=== PATIENT | male | born 1955 | race African-American/Black ===

== ENCOUNTER → 2018-10-02 | Day surgery (SDC) | payer BC ==
[2018-09-29 12:28] VITALS: BMI 33.9
[~2018-10-02] MED LIST: Ketamine 50 MG/ML (10ML VIAL) ONE
== END ==
LOC: SDC/OP 10:36
PROVIDERS: ATTEND Nurse Practitioner Family
DX: M21.372 Foot drop, left foot (principal); M54.9 Dorsalgia, unspecified; G89.29 Other chronic pain; F32.9 Major depressive disorder, single episode, unspecified; E78.5 Hyperlipidemia, unspecified; I10 Essential (primary) hypertension; G47.30 Sleep apnea, unspecified; Z98.890 Other specified postprocedural states; Z79.899 Other long term (current) drug therapy

== ENCOUNTER 2019-01-25 13:56 | Outpatient (CLI) | payer BC ==
--- NOTE | 2019-01-25 16:42 | CT ---
LUMBAR SPINE CT WITHOUT CONTRAST: 01/25/19 COMPARISON: None. HISTORY: Left foot numbness, spinal stenosis with neurogenic claudication. TECHNIQUE: Axial CT imaging at 3 mm intervals through the lumbar spine without contrast. Coronal and sagittal re formatted imaging obtained. FINDINGS: Evaluation for central canal and/or neural foraminal stenosis is limited on CT. There is an incompletely imaged low density lesion within the central aspect of the right kidney kris suring 2.1 cm with Hounsfield units in the 35-40 range, not consistent with a simple cyst. Thus, lou l ultrasound is advised for further assessment. There is no anterolisthesis of retrolisthesis noted within the lumbar spine. T12-L1: Mild bilateral facet hypertrophy. No significant central canal or neural foraminal stenosis o n the basis of osteophyte encroachment. L1-2: No osseous cause of significant central canal or neural foraminal stenosis. Mild bilateral face t hypertrophy with hypertrophy of the ligamentum flavum. L2-3: Mild bilateral facet hypertrophy. No osseous cause of significant central canal or neural fora miguel stenosis. Mild bilateral facet hypertrophy. L3-4: There is a small post foraminal disc protrusion on the left. There is mild left neural foramina l stenosis. No osseous cause of significant central canal stenosis. L4-5: There is bilateral facet hypertrophy with probable mild bilateral neural foraminal stenosis. No osseous cause of significant central canal stenosis. L5-S1: There is disc space narrowing and disc calcification as well as vacuum disc formation and bila teral facet hypertrophy. There is probable mild central canal stenosis and mild/moderate bilateral ne ural foraminal stenosis, left greater than right. No acute fracture or dislocation. No worrisome lyti c or blastic bone lesion. IMPRESSION: 1. Lumbar spine degenerative change, most prominent at the L5-S1 level. 2. Nonspecific hypodense lesion within the right kidney for which renal ultrasound is advised. Code T POS: TPC
== END 2019-01-25 13:57 | disposition home or self-care (01) ==
LOC: BICCT 13:56
PROVIDERS: ATTEND Nurse Practitioner Family
DX: M48.062 Spinal stenosis, lumbar region with neurogenic claudication (principal); M47.817 Spondylosis without myelopathy or radiculopathy, lumbosacral region; N28.9 Disorder of kidney and ureter, unspecified
CPT/HCPCS: 72131

== ENCOUNTER 2019-02-06 14:27 | Outpatient (CLI) | payer BC ==
--- NOTE | 2019-02-06 15:12 | ULT ---
Renal sonogram HISTORY: Renal cysts. COMPARISON: CT lumbar spine 01/25/2019. Sonogram kidneys 09/30/2014. FINDINGS: Right kidney measures up to 10.0 cm. Parapelvic cyst at the inferior pole is 2.4 cm greates t diameter, larger than on the prior study. No hydronephrosis or solid mass. Left kidney measures up to 11.2 cm. Small cortical cysts scattered throughout the cortex. Largest is at superior pole measuring up to 1.7 cm. Echogenicity involving the cortex at the medial aspect of the SONOGRAM IS OF UNCERTAIN ETIOLOGY GIVEN THE ABSENCE OF CALCIFICATION OR GAS ON RECENT CT. IMPRESSION: BILATERAL RENAL CYSTS, INCLUDING THE ABNORMALITY SEEN ON RECENT CT LUMBAR SPINE. NO AGGRE SSIVE ABNORMALITIES ARE DEMONSTRATED. NO EVIDENCE OF URINARY TRACT OBSTRUCTION.
== END 2019-02-06 14:28 | disposition home or self-care (01) ==
LOC: BICULT 14:27
PROVIDERS: ATTEND Anesthesiology Pain Medicine
DX: N28.9 Disorder of kidney and ureter, unspecified (principal); N28.1 Cyst of kidney, acquired
CPT/HCPCS: 76770

== ENCOUNTER 2021-07-16 17:00 | Outpatient (CLI) | payer BC | END 2021-07-16 17:01 | disposition home or self-care (01) | LOC: SLEEPLAB 17:00 | PROVIDERS: ATTEND Family Medicine | DX: G47.33 Obstructive sleep apnea (adult) (pediatric) (principal); F41.9 Anxiety disorder, unspecified; G47.00 Insomnia, unspecified; I10 Essential (primary) hypertension; R06.83 Snoring; E66.9 Obesity, unspecified; Z68.35 Body mass index [BMI] 35.0-35.9, adult | CPT/HCPCS: 95800 ==

== ENCOUNTER 2022-09-23 12:04 | Outpatient (CLI) | payer MEDICARE, BC ==
[2022-09-23] MEDS ORDERED: Sodium Chloride 0.9% 50 ML BAG ONE (13:00)
[2022-09-23] MEDS ORDERED: Iopamidol 300 61% 100 ML VIAL FS ONE (13:00)
[2022-09-23] MEDS ORDERED: Lidocaine 1% PF 5 ML VIAL ONE (13:00)
[2022-09-23] MEDS ORDERED: EPINEPHrine 1 mg/ml MDV (1ml Charge) ONE (13:00)
== END 2022-09-23 12:05 | disposition home or self-care (01) ==
LOC: RAD 12:04
PROVIDERS: ATTEND Orthopaedic Surgery
DX: M24.812 Other specific joint derangements of left shoulder, not elsewhere classified (principal); M75.122 Complete rotator cuff tear or rupture of left shoulder, not specified as traumatic; S43.492A Other sprain of left shoulder joint, initial encounter
CPT/HCPCS: 23350; J0171; Q9967

== ENCOUNTER 2022-11-22 15:27 | Outpatient (CLI) | payer MEDICARE, BC ==
[2022-11-22 17:23] LABS: #Basophils 0.1 10x3/uL (0.0-0.2); #Eosinphils 0.5 10x3/uL (0.0-0.5); #Monocytes 0.4 10x3/uL (0.0-1.1); #Neutrophils 2.7 10x3/uL (1.5-8.4); %Basophils 0.9 % (0.0-2.0); %Eosinophils 7.9 % (0.0-6.0); %Lymphocytes 38.1 % (18.0-47.0); %Neutrophils 45.9 % (40.0-75.0); Hematocrit 41.9 % (38.8-50.0); Hemoglobin 13.4 g/dL (13.5-17.5); Mean Corpuscular Hemoglobin 28.5 pg (27.0-33.0); Mean Corpuscular Volume 89.1 fl (81.2-95.1); Mean Platelet Volume 9.5 fl (7.4-10.4); Platelet Count 314 10x3/uL (150-450); RBC Distribution Width 13.1 % (11.5-14.5); White Blood Cell (WBC) Count 5.9 10x3/uL (3.5-10.5)
[2022-11-22 17:41] LABS: Anion Gap 12 mmol/L (10-20); BUN (Urea Nitrogen) 10 mg/dL (8.4-25.7); Calc. Creatinine Clearance 0 mL/min (70-130); Calcium 9.3 mg/dL (7.8-10.44); Carbon Dioxide 28 mmol/L (23-31); Chloride 104 mmol/L (98-107); Estimated GFR 52; Glucose 95 mg/dL (80-115); Potassium 4.3 mmol/L (3.5-5.1); Sodium 140 mmol/L (136-145)
== END 2022-11-22 15:28 | disposition home or self-care (01) ==
LOC: LABBT 15:27
PROVIDERS: ATTEND Orthopaedic Surgery
DX: Z01.818 Encounter for other preprocedural examination (principal); M75.102 Unspecified rotator cuff tear or rupture of left shoulder, not specified as traumatic
CPT/HCPCS: 71046; 80048; 85025; 93005; 93010

== ENCOUNTER 2022-11-24 06:55 | Day surgery (SDC) | payer MEDICARE, BC ==
[2022-11-22 16:06] VITALS: BMI 33.9
[2022-11-24] MEDS ORDERED: fentaNYL 50 mcg/mL 1 mL Vial ONE ×2 (08:30→08:43)
[2022-11-24] MEDS ORDERED: Midazolam HCl 2 mg/2 ml Vial ONE (08:43)
[2022-11-24] MEDS ORDERED: Ropivacaine 0.5% HCl/PF (150 MG/30 ML VIAL) ONE (08:43)
[2022-11-24] MEDS ORDERED: Ropivacaine 0.2% HCl/PF 20 ML ONE (08:43)
[2022-11-24] MEDS ORDERED: Phenylephrine 10 MG/ML VIAL ONE ×2 (09:31→11:52)
[2022-11-24] MEDS ORDERED: CEFAZOLIN 2 GM VIAL ONE (09:42)
[2022-11-24] MEDS ORDERED: Sodium Chloride 0.9% 100 ML ONE (09:42)
[2022-11-24] MEDS ORDERED: Zolpidem Tartrate 5 MG TAB PO PRN (09:45)
[2022-11-24] MEDS ORDERED: traMADol HCl 50 MG TAB PO PRN ×2 (09:45)
[2022-11-24] MEDS ORDERED: Promethazine HCl 25 MG/ML VIAL IM PRN (09:45)
[2022-11-24] MEDS ORDERED: Ondansetron PF 4 MG/2 ML Vial IVP PRN (09:45)
[2022-11-24] MEDS ORDERED: HYDROcodone/Acetaminophen 10/325 mg Tablet PO PRN ×2 (09:45)
[2022-11-24] MEDS ORDERED: Ropivacaine 0.2% 550 ML 550 ML NERVE BLCK SCH (09:45)
[2022-11-24] MEDS ORDERED: Vancomycin (BATCH) 1.5 GRAM/300 ML BAG ONE (09:47)
[2022-11-24] MEDS ORDERED: Ondansetron PF 4 MG/2 ML Vial ONE (09:58)
[2022-11-24] MEDS ORDERED: Dexamethasone 20 MG/5 ML VIAL ONE (09:58)
[2022-11-24] MEDS ORDERED: Rocuronium Bromide 10 MG/ML (10ML VIAL) ONE (09:58)
[2022-11-24] MEDS ORDERED: PHENYLEPHRINE-NS 100 MCG/ML 10 ML SYRINGE ONE (09:58)
[2022-11-24] MEDS ORDERED: PROPOFOL 200 MG/20 ML VIAL ONE (09:58)
[2022-11-24] MEDS ORDERED: ePHEDrine Sulfate 50 MG/10 ML VIAL ONE (09:58)
[2022-11-24] MEDS ORDERED: Calcium Chloride 1 GM/10 ML Abboject SYRINGE ONE (09:58)
[2022-11-24] MEDS ORDERED: SUGAMMADEX SODIUM 200 MG/2 ML VIAL ONE (10:24)
[2022-11-24] MEDS ORDERED: Vasopressin 20 UNITS/ML VIAL ONE (11:05)
== END 2022-11-24 15:17 | disposition home or self-care (01) ==
LOC: SDC 06:55
PROVIDERS: ATTEND Orthopaedic Surgery
PROC: 0RNK0ZZ Release Left Shoulder Joint, Open Approach (ICD-10-PCS; principal; 2022-11-24)
DX: M75.102 Unspecified rotator cuff tear or rupture of left shoulder, not specified as traumatic (principal); M75.01 Adhesive capsulitis of right shoulder; M75.02 Adhesive capsulitis of left shoulder; F32.A Depression, unspecified; E78.5 Hyperlipidemia, unspecified; N28.9 Disorder of kidney and ureter, unspecified; I10 Essential (primary) hypertension; G47.30 Sleep apnea, unspecified; J30.2 Other seasonal allergic rhinitis; N20.0 Calculus of kidney; Z98.890 Other specified postprocedural states; Z95.5 Presence of coronary angioplasty implant and graft; Z79.899 Other long term (current) drug therapy
CPT/HCPCS: 23420; A4306; C1713 ×2; J3010; J3370; Q4125; J1100; J2250; J2370; J2405; J2704; J2795; J3490

== ENCOUNTER 2022-12-02 19:00 | Outpatient (CLI) | payer MEDICARE, BC | END 2022-12-02 19:01 | disposition home or self-care (01) | LOC: SLEEPLAB 19:00 | PROVIDERS: ATTEND Student in an Organized Health Care Education/Training Program | DX: G47.33 Obstructive sleep apnea (adult) (pediatric) (principal); E66.9 Obesity, unspecified; G47.00 Insomnia, unspecified; I25.10 Atherosclerotic heart disease of native coronary artery without angina pectoris; I10 Essential (primary) hypertension; E78.5 Hyperlipidemia, unspecified; N28.9 Disorder of kidney and ureter, unspecified; N20.0 Calculus of kidney; F32.A Depression, unspecified; Z68.35 Body mass index [BMI] 35.0-35.9, adult | CPT/HCPCS: 95811 ==